=== PATIENT | female | born 1970 | race Caucasian/White ===

== ENCOUNTER → 2023-03-10 | Outpatient (REF) | LOC: M LAB 14:33 | PROVIDERS: ATTEND Nurse Practitioner Adult Health | DX: Z02.89 Encounter for other administrative examinations (principal) ==

== ENCOUNTER 2023-06-03 14:25 | Emergency (ER) | payer OTHER, MEDICAID ==
[~2023-06-03] VITALS: Ht 185.4 cm; Wt 85.1 kg
[2023-06-03 14:26] VITALS: TEMP 96.9
[2023-06-03] MEDS ORDERED: PREG25CA PO (15:05)
[2023-06-03] MEDS ORDERED: VIMP100T PO ×2 (15:05→15:48)
[2023-06-03] MEDS ORDERED: KEPP1TAB2 PO ×2 (15:05→15:48)
[2023-06-03] MEDS ORDERED: HYDR-3713 PO (15:05)
[2023-06-03] MEDS ORDERED: LANTINJ4 SC (15:05)
[2023-06-03] MEDS ORDERED: VICT18IN SC (15:05)
[2023-06-03 16:01] VITALS: BP 126/78; O2SAT 100
== END 2023-06-03 16:10 | disposition home or self-care (01) ==
LOC: M ED 14:25
DX: Z76.0 Encounter for issue of repeat prescription (principal); G40.909 Epilepsy, unspecified, not intractable, without status epilepticus

== ENCOUNTER 2023-06-15 13:59 | Emergency (ER) | payer MEDICAID, OTHER ==
[~2023-06-15] VITALS: Ht 182.9 cm; Wt 84.7 kg
[~2023-06-15 13:59] MED LIST: HYDR-3713 PO; KEPP1TAB2 PO; LANTINJ4 SC; PREG25CA PO; VICT18IN SC; VIMP100T PO
[2023-06-15 16:37] LABS: HEMATOCRIT 38.1 % (36.0-47.0); HEMOGLOBIN 12.6 g/dl (12.0-15.5); MEAN CORPUSCULAR HEMOGLOBIN 30.1 pg (27.0-33.0); MEAN CORPUSCULAR HGB CONC 33.1 g/dl (32.0-36.5); MEAN CORPUSCULAR VOLUME 91.1 fl (80.0-96.0); PLATELET COUNT, AUTOMATED 386 10^3/uL (150-450); RED BLOOD COUNT 4.18 10^6/uL (4.00-5.40); WHITE BLOOD COUNT 10.4 10^3/uL (4.0-10.0)
[2023-06-15 16:58] LABS: ALBUMIN 3.6 G/DL (3.2-5.2); ALKALINE PHOSPHATASE 76 U/L (46-116); ALT/SGPT 10 U/L (7.0-40); AST/SGOT < 8 U/L (<34); BILIRUBIN,DIRECT 0.1 MG/DL (<0.4); BILIRUBIN,TOTAL 0.4 MG/DL (0.3-1.2); BLOOD UREA NITROGEN 12 MG/DL (9-23); CALCIUM LEVEL 9.3 MG/DL (8.5-10.1); CARBON DIOXIDE LEVEL 21 MMOL/L (20-31); CHLORIDE LEVEL 109 MMOL/L (98-107); CREATININE FOR GFR 0.55 MG/DL (0.55-1.30); GLOMERULAR FILTRATION RATE > 60.0 (>51); GLUCOSE, FASTING 48 MG/DL (60-100); POTASSIUM SERUM 3.1 MMOL/L (3.5-5.1); SODIUM LEVEL 142 MMOL/L (136-145); TOTAL PROTEIN 6.8 G/DL (5.7-8.2)
[2023-06-15 17:09] LABS: ATYPICAL LYMPH 3 % (0-5); BASOPHILS 2 % (0-1); LYMPHOCYTES 41 % (16-44); MONOCYTES 3 % (0-5); NEUTROPHILS 50 % (28-66)
[2023-06-15 17:10] LABS: PLATELET ESTIMATE NORMAL (NORMAL)
[2023-06-15] MEDS ORDERED: CEPHALEXIN 500 MG CAP PO ONE (18:20)
[2023-06-15] MEDS ORDERED: FUROSEMIDE 40 MG TAB PO ONE (18:20)
[2023-06-15] MEDS ORDERED: CEPH500C PO (18:20)
[2023-06-15] MEDS ORDERED: LASI20TA3 PO (18:20)
[2023-06-15] MEDS ORDERED: POTA-151 PO (18:25)
[2023-06-15] MEDS ORDERED: GABAPENTIN 300 MG CAP PO ONE (18:30)
[2023-06-15] MEDS ORDERED: NEUR300C PO (18:31)
[2023-06-15 18:32] VITALS: BP 149/80; TEMP 98; O2SAT 99
== END 2023-06-15 18:35 | disposition home or self-care (01) ==
LOC: M ED 13:59
DX: R22.42 Localized swelling, mass and lump, left lower limb (principal); L03.116 Cellulitis of left lower limb; E11.40 Type 2 diabetes mellitus with diabetic neuropathy, unspecified; G40.909 Epilepsy, unspecified, not intractable, without status epilepticus; Z79.84 Long term (current) use of oral hypoglycemic drugs; Z79.811 Long term (current) use of aromatase inhibitors; Z79.891 Long term (current) use of opiate analgesic; Z79.899 Other long term (current) drug therapy

== ENCOUNTER 2023-07-05 17:02 | Emergency (ER) | payer OTHER ==
[~2023-07-05] VITALS: Ht 185.4 cm; Wt 80.7 kg
[~2023-07-05 17:02] MED LIST changes: +CEPH500C PO; +LASI20TA3 PO; +NEUR300C PO; +POTA-151 PO
[2023-07-05 17:03] VITALS: TEMP 98.1
[2023-07-05] MEDS ORDERED: POTA-298 PO (17:30)
[2023-07-05 17:59] LABS: BASO % 0.6 % (0.0-1.0); EOS # 0.1 10^3/uL (0.0-0.5); EOS % 1.1 % (0.0-3.0); HEMATOCRIT 40.7 % (36.0-47.0); HEMOGLOBIN 14.1 g/dl (12.0-15.5); LYMPH # 1.9 10^3/uL (1.5-5.0); LYMPH % 31.1 % (24.0-44.0); MEAN CORPUSCULAR HEMOGLOBIN 30.8 pg (27.0-33.0); MEAN CORPUSCULAR HGB CONC 34.6 g/dl (32.0-36.5); MEAN CORPUSCULAR VOLUME 88.9 fl (80.0-96.0); MONO # 0.3 10^3/uL (0.0-0.8); NEUTROPHILS # 3.9 10^3/uL (1.5-8.5); PLATELET COUNT, AUTOMATED 336 10^3/uL (150-450); RED BLOOD COUNT 4.58 10^6/uL (4.00-5.40); WHITE BLOOD COUNT 6.2 10^3/uL (4.0-10.0)
[2023-07-05 18:28] LABS: BLOOD UREA NITROGEN 15 MG/DL (9-23); CALCIUM LEVEL 9.4 MG/DL (8.5-10.1); CARBON DIOXIDE LEVEL 25 MMOL/L (20-31); CHLORIDE LEVEL 100 MMOL/L (98-107); CREATININE FOR GFR 0.62 MG/DL (0.55-1.30); GLOMERULAR FILTRATION RATE > 60.0 (>51); GLUCOSE, FASTING 440 MG/DL (60-100); POTASSIUM SERUM 4.7 MMOL/L (3.5-5.1); SODIUM LEVEL 134 MMOL/L (136-145)
[2023-07-05] MEDS ORDERED: HumuLIN R (REGULAR) INSULIN (NovoLIN R) **100U/ML** PER UNIT SC ONE (19:20)
[2023-07-05] MEDS ORDERED: NORCO, ANEXSIA 5/325MG TABLET (HYDROcodone/ACETAMINOPHEN) PO ONE (19:25)
[2023-07-05 20:13] LABS: APPEARANCE, URINE CLEAR (CLEAR); BACTERIA, URINE AUTO NEGATIVE (NEGATIVE); BILIRUBIN, URINE AUTO NEGATIVE (NEGATIVE); BLOOD, URINE BLOOD NEGATIVE (NEGATIVE); COLOR, URINE STRAW (YELLOW); GLUCOSE, URINE (UA) AUTO 3+ mg/dL (NEGATIVE); KETONE, URINE AUTO 1+ mg/dL (NEGATIVE); LEUKOCYTE ESTERASE, URINE AUTO 1+ (NEGATIVE); MUCUS, URINE SMALL (NEGATIVE); NITRITE, URINE AUTO NEGATIVE (NEGATIVE); PROTEIN, URINE AUTO NEGATIVE (NEGATIVE); RBC, URINE AUTO 2 /HPF (0-3); SPECIFIC GRAVITY URINE AUTO 1.028 (1.002-1.035); SQUAMOUS EPITHELIAL CELL UR AU 1 /HPF (0-6); UROBILINOGEN, URINE AUTO 0.2 mg/dL (0.0-2.0); WBC, URINE AUTO 15 /HPF (0-3)
[2023-07-05 21:32] VITALS: BP 128/75; O2SAT 98
== END 2023-07-05 21:33 | disposition home or self-care (01) ==
LOC: M ED 17:02
DX: E11.65 Type 2 diabetes mellitus with hyperglycemia (principal); M79.605 Pain in left leg; G90.09 Other idiopathic peripheral autonomic neuropathy; G40.909 Epilepsy, unspecified, not intractable, without status epilepticus; Z79.891 Long term (current) use of opiate analgesic; Z79.4 Long term (current) use of insulin; Z79.899 Other long term (current) drug therapy
CPT/HCPCS: 73590; 73630; 80048; 81001; 85025; 93971; 96372; 99283; J1815

== ENCOUNTER 2023-08-07 13:32 | Emergency (ER) | payer OTHER ==
[~2023-08-07] VITALS: Ht 185.4 cm; Wt 83.3 kg
[~2023-08-07 13:32] MED LIST changes: +POTA-298 PO
[2023-08-07] MEDS ORDERED: PREG25CA3 (14:46)
[2023-08-07] MEDS ORDERED: INSU100I38 (14:46)
[2023-08-07] MEDS ORDERED: INSU100V6 (14:46)
[2023-08-07] MEDS ORDERED: CEFT1INJ5 IM (14:47)
[2023-08-07 15:50] VITALS: BP 140/88; TEMP 97.6; O2SAT 99
== END 2023-08-07 15:52 | disposition home or self-care (01) ==
LOC: M ED 13:32
DX: Z95.9 Presence of cardiac and vascular implant and graft, unspecified (principal); E11.9 Type 2 diabetes mellitus without complications; G40.909 Epilepsy, unspecified, not intractable, without status epilepticus; F17.200 Nicotine dependence, unspecified, uncomplicated; Z79.4 Long term (current) use of insulin; Z79.899 Other long term (current) drug therapy